=== PATIENT | female | born 1995 | race Caucasian/White ===

== ENCOUNTER → 2016-06-04 | Outpatient (CLI) | payer BC ==
--- NOTE | 2016-06-04 18:19 | XR ---
EXAMINATION TYPE: XR cervical spine limited DATE OF EXAM: 06/04/2016 5:45 PM COMPARISON: NONE HISTORY: Shoulder pain neck pain TECHNIQUE: 4 views FINDINGS: Cervical vertebra have normal spacing and alignment. Posterior elements are intact. [place] axial facet joint is normal. IMPRESSION: Normal cervical spine.
== END | disposition home or self-care (01) ==
LOC: RADXRMAIN 17:26
PROVIDERS: ATTEND Physician Assistant
DX: M43.6 Torticollis (principal)
CPT/HCPCS: 72040

== ENCOUNTER → 2017-09-07 | Outpatient (CLI) | payer BC ==
--- NOTE | 2017-09-07 12:51 | XR ---
EXAMINATION TYPE: XR sacrum coccyx DATE OF EXAM: 09/07/2017 CLINICAL HISTORY: pain TECHNIQUE: Three views of the sacrum and coccyx are submitted. COMPARISON: None Sacral alae appear symmetric. No evidence for fracture or bony lesion. Sacroiliac joints are within normal limits. Visualized coccygeal segments are free of fracture or lesion. IMPRESSION: Normal study
== END | disposition home or self-care (01) ==
LOC: RADXRMAIN 12:28
PROVIDERS: ATTEND Physician Assistant
DX: M54.5 Low back pain (principal)
CPT/HCPCS: 72220

== ENCOUNTER 2018-03-15 15:15 | Emergency (ER) | payer BC ==
[2018-03-15 16:47] LABS: Appearance,Urine Clear (Clear); Basophils % (A) 0 %; Bilirubin,Urine Negative (Negative); Blood,Urine Negative (Negative); Color,Urine Colorless; Eosinophils # (A) 0.2 k/uL (0-0.7); Eosinophils % (A) 3 %; Glucose,Urine (UA) Negative (Negative); HCT 43.2 % (34.0-46.0); HGB 14.8 gm/dL (11.4-16.0); Ketones,Urine Negative (Negative); Leukocyte Esterase,Urine Negative (Negative); Lymphocytes # (A) 1.6 k/uL (1.0-4.8); Lymphocytes % (A) 23 %; MCH 29.5 pg (25.0-35.0); MCHC 34.4 g/dL (31.0-37.0); MCV 85.9 fL (80.0-100.0); Mean Platelet Volume 7.2; Monocytes # (A) 0.4 k/uL (0-1.0); Monocytes % (A) 5 %; Neutrophils # (A) 4.7 k/uL (1.3-7.7); Neutrophils % (A) 66 %; Nitrite,Urine Negative (Negative); PH, Urine 5.5 (5.0-8.0); Platelet Count 259 k/uL (150-450); Protein,Urine Negative (Negative); RBC 5.03 m/uL (3.80-5.40); RDW 12.2 % (11.5-15.5); Specific Gravity,Urine 1.004 (1.001-1.035); Urobilinogen,Urine <2.0 mg/dL (<2.0); WBC 7.1 k/uL (3.8-10.6)
[2018-03-15 16:52] LABS: ALT 33 U/L (9-52); AST 34 U/L (14-36); Albumin 4.5 g/dL (3.5-5.0); Alkaline Phosphatase 65 U/L (38-126); Amylase 93 U/L (30-110); Anion Gap 11 mmol/L; Blood Urea Nitrogen 13 mg/dL (7-17); Calcium 10.2 mg/dL (8.4-10.2); Carbon Dioxide 24 mmol/L (22-30); Chloride 105 mmol/L (98-107); Glucose 95 mg/dL (74-99); Lipase 108 U/L (23-300); Potassium 4.8 mmol/L (3.5-5.1); Sodium 140 mmol/L (137-145); Total Bilirubin 0.4 mg/dL (0.2-1.3); Total Protein 7.7 g/dL (6.3-8.2)
--- NOTE | 2018-03-15 17:39 | ED ---
General Adult HPI - General Chief complaint: Abdominal Pain Stated complaint: abdominal pain Time Seen by Provider: 03/15/18 16:56 Source: patient, RN notes reviewed Mode of arrival: ambulatory Limitations: no limitations - History of Present Illness Initial comments: Patient 22-year-old female presenting to the emergency room today with a chief complaint of abdominal pain over the last 3 days. Patient does admit that she' s been experiencing some discomfort in right lower quadrant. Patient does admit that it was worse this morning. She didn't follow-up the family physician who advised to come here to the emergency room to rule out appendicitis. Patient states pain started around the umbilical area radiating over to the right lower quadrant. Patient does admit appetites been somewhat decreased. She denies any other complaints or symptoms. Patient denies any recent fever, chills, shortness of breath, chest pain, back pain, nausea or vomiting, numbness or tingling, dysuria or hematuria, constipation or diarrhea, headaches or visual changes, or any other complaints. - Related Data Home Medications Medication Instructions Recorded Confirmed Acetaminophen [Tylenol] 650 mg PO Q4H PRN 03/15/18 03/15/18 Levonest 28, 6-5-10 1 tab PO DAILY 03/15/18 03/15/18 Allergies Allergy/AdvReac Type Severity Reaction Status Date / Time nickel Allergy Rash/Hives Verified 03/15/18 17:26 mint Allergy Unknown Uncoded 03/15/18 15:58 Review of Systems ROS Statement: Those systems with pertinent positive or pertinent negative responses have been documented in the HPI. ROS Other: All systems not noted in ROS Statement are negative. Past Medical History Additional Past Medical History / Comment(s): Hx Ovarian Cyst History of Any Multi-Drug Resistant Organisms: None Reported Past Surgical History: No Surgical Hx Reported Past Psychological History: No Psychological Hx Reported Smoking Status: Never smoker Past Alcohol Use History: Occasional Past Drug Use History: None Reported General Exam - General Exam Comments Initial Comments: General: The patient is awake and alert, in no distress, and does not appear acutely ill. Eye: Extra-ocular movements are intact. No nystagmus. There is normal conjunctiva bilaterally. No signs of icterus. Ears, nose, mouth and throat: There are moist mucous membranes and no oral lesions. Neck: The neck is supple, there is no tenderness or JVD. Cardiovascular: There is a regular rate and rhythm. No murmur, rub or gallop is appreciated. Respiratory: Lungs are clear to auscultation, respirations are non-labored, breath sounds are equal. No wheezes, stridor, rales, or rhonchi. Gastrointestinal: Soft on palpation. Patient tender to palpation right lower quadrant. No rebound, guarding or CVA tenderness. Musculoskeletal: Normal ROM, no tenderness. Sensation intact. Strength 5/5. Pulses equal bilaterally 2+. Neurological: A&O x 3. CN II-XII intact, There are no obvious motor or sensory deficits. Coordination appears grossly intact. Speech is normal. Skin: Skin is warm and dry and no rashes or lesions are noted. Psychiatric: Cooperative, appropriate mood & affect, normal judgment. Limitations: no limitations Course Vital Signs 03/15/18 15:56 Temperature 98.3 F Pulse Rate 82 Respiratory 20 Rate Blood Pressure 134/92 O2 Sat by Pulse 99 Oximetry Medical Decision Making - Medical Decision Making Patient's CT shows 5.5 cm right adnexal cystic mass, presumably are present and functional ovarian cyst. Suggest following up. The patient's labs been reviewed unremarkable. Patient's currently up moving around the room. Patient' s vital stable. Patient will be discharged to follow-up with her CHIEF SCIENTIFIC OFFICER. She states she's seeing Dr. Singleton in the past. - Lab Data Result diagrams: 03/15/18 16:20 03/15/18 16:20 Lab Results 03/15/18 03/15/18 03/15/18 Range/Units 16:20 16:20 16:20 WBC 7.1 (3.8-10.6) k/uL RBC 5.03 (3.80-5.40) m/uL Hgb 14.8 (11.4-16.0) gm/dL Hct 43.2 (34.0-46.0) % MCV 85.9 (80.0-100.0) fL MCH 29.5 (25.0-35.0) pg MCHC 34.4 (31.0-37.0) g/dL RDW 12.2 (11.5-15.5) % Plt Count 259 (150-450) k/uL Neutrophils % 66 % Lymphocytes % 23 % Monocytes % 5 % Eosinophils % 3 % Basophils % 0 % Neutrophils # 4.7 (1.3-7.7) k/uL Lymphocytes # 1.6 (1.0-4.8) k/uL Monocytes # 0.4 (0-1.0) k/uL Eosinophils # 0.2 (0-0.7) k/uL Basophils # 0.0 (0-0.2) k/uL Sodium 140 (137-145) mmol/L Potassium 4.8 (3.5-5.1) mmol/L Chloride 105 (98-107) mmol/L Carbon Dioxide 24 (22-30) mmol/L Anion Gap 11 mmol/L BUN 13 (7-17) mg/dL Creatinine 0.67 (0.52-1.04) mg/dL Est GFR (CKD-EPI)AfAm >90 (>60 ml/min/1.73 sqM) Est GFR (CKD-EPI)NonAf >90 (>60 ml/min/1.73 sqM) Glucose 95 (74-99) mg/dL Calcium 10.2 (8.4-10.2) mg/dL Total Bilirubin 0.4 (0.2-1.3) mg/dL AST 34 (14-36) U/L ALT 33 (9-52) U/L Alkaline Phosphatase 65 (38-126) U/L Total Protein 7.7 (6.3-8.2) g/dL Albumin 4.5 (3.5-5.0) g/dL Amylase 93 (30-110) U/L Lipase 108 (23-300) U/L Urine Color Colorless Urine Appearance Clear (Clear) Urine pH 5.5 (5.0-8.0) Ur Specific [place] 1.004 (1.001-1.035) Urine Protein Negative (Negative) Urine Glucose (UA) Negative (Negative) Urine Ketones Negative (Negative) Urine Blood Negative (Negative) Urine Nitrite Negative (Negative) Urine Bilirubin Negative (Negative) Urine Urobilinogen <2.0 (<2.0) mg/dL Ur Leukocyte Esterase Negative (Negative) Disposition Clinical Impression: Ovarian cyst Disposition: HOME SELF-CARE Condition: Good Instructions: Ovarian Cyst (ED) Additional Instructions: Please use Tylenol/ibuprofen. Please follow-up with CHIEF SCIENTIFIC OFFICER/family doctor in the next 2 days of symptoms have not improved. Please return to emergency room if the symptoms increase or worsen or for any other concerns. Is patient prescribed a controlled substance at d/c from ED?: No Referrals: Nahun Mota MD [Primary Care Provider] - 1-2 days Emelina Singleton MD [STAFF PHYSICIAN] - 1-2 days Time of Disposition: 19:25
--- NOTE | 2018-03-15 18:16 | CT ---
EXAMINATION TYPE: CT abdomen pelvis w con DATE OF EXAM: 03/15/2018 COMPARISON: None. HISTORY: RLQ pain for [address] DLP: 1194.4 mGycm Automated exposure control for dose reduction was used. TECHNIQUE: Helical acquisition of images was performed from the lung bases through the pelvis. CONTRAST: Performed without Oral Contrast and with IV Contrast, patient injected with 100 mL of Isovu e 300. FINDINGS: LUNG BASES: No significant abnormality is appreciated. LIVER/GB: No significant abnormality is appreciated. PANCREAS: No significant abnormality is seen. SPLEEN: No significant abnormality is seen. ADRENALS: No significant abnormality is seen. KIDNEYS: No significant abnormality is seen. FREE AIR: No free air is visualized. ADENOPATHY: No marsha adenopathy. However, there are a few scattered mesenteric subcentimeter lymph nodes appreciated, including the right lower quadrant. These can correlate with a clinical diagnosis of gastroenteritis. REPRODUCTIVE ORGANS: There is a 5.5 cm rounded cystic mass in the right adnexa and a similar appearin g focus in the left adnexa measuring 2 cm. There is minimal right-sided peritoneal fluid identified. URINARY BLADDER: No significant abnormality is seen. PELVIC ADENOPATHY: None visualized. OSSEOUS STRUCTURES: No significant abnormality is seen. BOWEL: No significant abnormality is seen. The cecum is high riding to a mild degree with the append ix extending caudally in the right lower quadrant. Negative for CT evidence of appendicitis. OTHER: The vasculature is unremarkable. IMPRESSION: 5.5 CM RIGHT ADNEXAL CYSTIC MASS, PRESUMABLY REPRESENTING FUNCTIONAL OVARIAN CYST. WOULD SUGGEST 2 OR 6 WEEK FOLLOW-UP ULTRASOUND CHARACTERIZATION.
[2018-03-15 19:56] VITALS: BP 137/80; PULSE 84; RESP 16; TEMP 98.2
== END 2018-03-15 19:55 | disposition home or self-care (01) ==
LOC: EC 15:15
DX: N83.201 Unspecified ovarian cyst, right side (principal); Z79.3 Long term (current) use of hormonal contraceptives; Z91.018 Allergy to other foods; Z88.8 Allergy status to other drugs, medicaments and biological substances
CPT/HCPCS: 36415; 80053; 82150; 83690; 85025; 81003; 74177; 99284; Q9967

== ENCOUNTER → 2018-11-11 | Outpatient (CLI) | payer BC ==
--- NOTE | 2018-11-11 16:29 | MR ---
EXAMINATION TYPE: MR brain/orbits wo/w con DATE OF EXAM: 11/11/2018 COMPARISON: MRI of the brain dated 07/16/2012, normal at that time. HISTORY: Chronic tension-type headache TECHNIQUE: Multiplanar, multisequence images of the orbits, brain and brainstem is performed without and with IV contrast, utilizing 10 mL intravenous Gadavist . FINDINGS: Diffusion weighted images demonstrate no evidence of a recent infarct or other diffusion ab normality. There is no extra-axial fluid collection or significant white matter signal abnormality. The ventricular system and cisternal spaces are normal in size and appearance. The brain volume is age appropriate. Cerebellar tonsils are slightly low-lying without herniation. The remaining midline structures demons trate normal morphology. The craniocervical junction appears within normal limits. Post contrast irish ges demonstrate no abnormal enhancement. The dural venous sinuses appear patent. The visualized sinus es demonstrate a scant degree of mucosal thickening of the anterior right maxillary sinus and within the ethmoid sinuses. Remaining paranasal sinuses and mastoid air cells are well aerated. Globes are i ntact however there is slightly prominent degree of subarachnoid fluid surrounding the optic nerves w ith very mild undulation. No evidence of a partially into sella turcica. Bone marrow signal is lower limits of normal. Correlate with CBC to exclude anemia. Probable hemangioma that is T1 hyperintense i s seen of C3. Extraocular muscles are symmetric. No abnormal enhancement is seen of the optic nerves. Globes are sy mmetric. As described above there is a slightly prominent amount of perineural fluid bilaterally on T 2-weighted imaging. Globes maintain a normal rounded contour and lenses are symmetric and unremarkabl e. No intraconal or extraconal mass is seen. Lacrimal glands are also symmetric and unremarkable. IMPRESSION: 1. Very mild increased subarachnoid fluid and undulation surrounding the optic nerves. This finding i s nonspecific and can be a normal variant or seen in increased intracranial pressure. Correlate with ophthalmologic exam to exclude papilledema. This finding could also be seen in pseudotumor cerebri. C orrelate with clinical findings. 2. Very mild mucosal thickening of the ethmoid and right maxillary sinus. 3. No abnormal intracranial enhancement
== END | disposition home or self-care (01) ==
LOC: RADMRIMAIN 15:09
PROVIDERS: ATTEND Ophthalmology
DX: J34.89 Other specified disorders of nose and nasal sinuses (principal); H46.01 Optic papillitis, right eye
CPT/HCPCS: 70543; 70553; A9585

== ENCOUNTER 2018-11-24 09:44 | Day surgery (SDC) | payer BC ==
[2018-11-19 11:43] VITALS: BMI 33.0
[~2018-11-24 09:44] MED LIST: LACTATED RINGERS 1,000 ML IV SCH
[2018-11-24 10:06] VITALS: RESP 16; TEMP 97.4
[2018-11-24] MEDS ORDERED: LIDOCAINE 1% 20 ML VIAL (10MG/ML) FOR IV START INTRADERMA ONE (10:10)
[2018-11-24] MEDS ORDERED: IV FLUID CONTINUATION 1,000 ML IV ONE (11:22)
--- NOTE | 2018-11-24 12:00 | P.OP ---
Date of Procedure: 11/24/18 Surgeon: Luis Alfredo Garvey Description of Procedure: Procedure=lumbar puncture . Preoperative diagnoses= visual changes Postoperative diagnosis= same Anesthesia= local lidocaine infiltration 1% 2 mL for skin and subcutaneous infiltration. 4 mg of Versed and 100 g of fentanyl Condition= stable. Complications=none. Indication for the procedure= this is a lumbar puncture which was ordered by the patient's physician in order to assess for her opening pressure into send fluid off her labs. Procedure: Lumbar puncture Description of the procedure= patient in the procedure room sitting position and monitors applied, the back prepped with chlorhexidine, sterile technique, local infiltration of the skin and subcutaneous tissue with lidocaine 1% 5 mL, then 22-gauge quickie Needle advanced slowly at the L4 5 interlaminar space, the opening pressure was found to be 23 cm of water , the cerebrospinal fluid was clear, and no heme no paresthesia, a total of 12 mL of clear cerebrospinal fluid collected in 4 different tubes, the needle removed, Band-Aid applied , patient tolerated the procedure well without any complications, and further management as per the patient's neurologist
[2018-11-24 12:04] VITALS: BP 118/74; PULSE 67
== END 2018-11-24 12:26 | disposition home or self-care (01) ==
LOC: ORPAIN 09:44
PROVIDERS: ATTEND Pain Medicine Pain Medicine
DX: H53.9 Unspecified visual disturbance (principal); Z79.1 Long term (current) use of non-steroidal anti-inflammatories (NSAID); Z79.899 Other long term (current) drug therapy; Z91.09 Other allergy status, other than to drugs and biological substances; Z80.9 Family history of malignant neoplasm, unspecified
CPT/HCPCS: 62270; 81025; 88108; J2250; J3010; 99152; 99153

== ENCOUNTER → 2018-12-03 | Outpatient (CLI) | payer BC ==
--- NOTE | 2018-12-03 19:41 | XR ---
EXAM TYPE: LUMBAR SPINE X RAY SERIES COMPARISON: NONE HISTORY: Pain TECHNIQUE: 4 views are submitted. FINDINGS: Alignment is anatomic. The pedicles are intact. The transverse processes are intact. There is no s pondylolysis or spondylolisthesis. IMPRESSION: 1. No acute process. If symptoms persist recommend MRI.
== END ==
LOC: RADXRMAIN 17:09
PROVIDERS: ATTEND Physician Assistant
DX: G62.9 Polyneuropathy, unspecified (principal)
CPT/HCPCS: 72100

== ENCOUNTER → 2018-12-13 | Outpatient (CLI) | payer BC ==
--- NOTE | 2018-12-14 07:12 | MR ---
EXAMINATION TYPE: MR lumbar spine wo con DATE OF EXAM: 12/13/2018 COMPARISON: Lumbar spine x-ray 10 days ago. HISTORY: BILAT PAIN IN THE BACK OF KNEES DOWN TO FEET X3 WEEKS, HX OF LUMBAR PUNCTURE 3 WEEKS AGO, luis alberto mbar radiculopathy per order TECHNIQUE: Multiplanar, multisequence imaging of the lumbar spine is performed without IV contrast. FINDINGS: Sagittal images of the lumbar spine show vertebral body heights and alignment to appear sat isfactory. The intervertebral discs demonstrate normal heights and hydration. No large posterior disc herniations on sagittal images The conus medullaris is normal in position and signal. Small hemangio ma is seen at S3 vertebral level sagittal image 9. Axial images show no focal disc disease, or facet degenerative change at any lumbar level. There is no spinal canal stenosis, neural foraminal narrowing, or evidence of nerve root compromise. No suspic ious incidental retroperitoneal findings. IMPRESSION: Fairly unremarkable study.
== END | disposition home or self-care (01) ==
LOC: RADMRIMAIN 18:42
PROVIDERS: ATTEND Physician Assistant
DX: M54.16 Radiculopathy, lumbar region (principal)
CPT/HCPCS: 72148

== ENCOUNTER 2019-03-04 10:22 | Emergency (ER) | payer BC ==
[2019-03-04 10:37] VITALS: TEMP 98.3
[2019-03-04] MEDS ORDERED: ONDANSETRON 4 MG/2 ML VIAL IVP STA (10:52)
[2019-03-04] MEDS ORDERED: SODIUM CHLORIDE 0.9% 1,000 ML IV STA (10:52)
[2019-03-04] MEDS ORDERED: KETOROLAC 30 MG/ML 1 ML VIAL IVP STA (10:52)
--- NOTE | 2019-03-04 11:14 | ED ---
Abdominal Pain HPI - General Chief Complaint: Abdominal Pain Stated Complaint: abd pain Time Seen by Provider: 03/04/19 10:38 Source: patient, family Mode of arrival: ambulatory Limitations: no limitations - History of Present Illness Initial Comments: Patient is a 23-year-old female presenting to the emergency Department with complaints of right-sided abdominal pain 3 days. Patient states her pain started around her umbilical area approximately 3 days ago and then has moved to her right side of her abdomen. Patient reports associated nausea, decreased appetite and not being will sleep secondary to the pain. Patient states the pain feels better when she is flat and increases when she is seated in the car. Patient has a history of ovarian cyst on the right side. Patient denies fever, chills, vomiting, diarrhea. Patient's last bowel movement was yesterday and was normal. Patient denies any abdominal surgeries. No other pertinent past medical history. Patient takes no medications. Upon arrival to ER, vital signs are stable. - Related Data Home Medications Medication Instructions Recorded Confirmed Acetaminophen [Tylenol] 650 mg PO Q4H PRN 03/15/18 11/24/18 Inulin/Chromium Picolinate [Fiber 1 each PO DAILY 11/19/18 11/24/18 Gummies Chew] Multivitamins, Thera [Multivitamin 1 tab PO DAILY 11/19/18 11/24/18 (formulary)] Previous Rx's Medication Instructions Recorded Amoxicillin/Potassium Clav 1 tab PO BID 7 Days #14 tab 03/04/19 [Augmentin 875-125 Tablet] Ondansetron Odt [Zofran Odt] 4 mg PO Q8HR PRN #10 tab 03/04/19 Allergies Allergy/AdvReac Type Severity Reaction Status Date / Time nickel Allergy Rash/Hives Verified 03/04/19 10:35 mint Allergy Unknown Uncoded 03/04/19 10:35 Review of Systems ROS Statement: Those systems with pertinent positive or pertinent negative responses have been documented in the HPI. ROS Other: All systems not noted in ROS Statement are negative. Past Medical History Additional Past Medical History / Comment(s): Hx Ovarian Cyst, "excess fluid brain, eyes going blurry" History of Any Multi-Drug Resistant Organisms: None Reported Past Surgical History: No Surgical Hx Reported Past Anesthesia/Blood Transfusion Reactions: No Reported Reaction Additional Past Anesthesia/Blood Transfusion Reaction / Comment(s): has never had anesthesia Past Psychological History: No Psychological Hx Reported Smoking Status: Never smoker Past Alcohol Use History: None Reported Past Drug Use History: None Reported - Past Family History Mother Family Medical History: No Reported History General Exam - General Exam Comments Initial Comments: GENERAL: Well-appearing, well-nourished and in no acute distress. HEAD: Atraumatic, normocephalic. EYES: Pupils equal round and reactive to light, extraocular movements intact, sclera anicteric, conjunctiva are normal. ENT: TMs normal, nares patent, oropharynx clear without exudates. Moist mucous membranes. NECK: Normal range of motion, supple without lymphadenopathy or JVD. LUNGS: Breath sounds clear to auscultation bilaterally and equal. No wheezes rales or rhonchi. HEART: Regular rate and rhythm without murmurs, rubs or gallops. ABDOMEN: Generalized abdominal tenderness, increased on the right upper and lower quadrants. Soft, normoactive bowel sounds. No guarding, no rebound. No masses appreciated. : Deferred, declined. EXTREMITIES: Normal range of motion, no pitting or edema. No clubbing or cyanosis. NEUROLOGICAL: Cranial nerves II through XII grossly intact. Normal speech, normal gait. PSYCH: Normal mood, normal affect. SKIN: Warm, Dry, normal turgor, no rashes or lesions noted. Limitations: no limitations Course Vital Signs 03/04/19 03/04/19 10:35 13:37 Temperature 98.3 F Pulse Rate 92 81 Respiratory 16 18 Rate Blood Pressure 129/87 122/71 O2 Sat by Pulse 98 98 Oximetry Medical Decision Making - Medical Decision Making Patient is a 23-year-old female presenting with right-sided abdominal pain x 2 days. Patient's vital signs are normal upon arrival. On exam patient has tenderness of the right upper and lower quadrants. Rest of exam is normal. CBC, CMP are within normal limits. UA reveals occasional urine bacteria. Urine hCG is not detected. CT the abdomen was obtained with concern for appendicitis. Findings suggest ascending colitis with reactive right lower quadrant adenopathy. Inflammatory bowel disease could be considered. No evidence of acute appendicitis. There are cystic changes bilateral ovaries. Patient also declined vaginal exam. These findings were discussed with the patient is recommended for patient to have a vaginal ultrasound to rule out ovarian torsion. Patient declined this exam. The risks of not doing the ultrasound was discussed in depth with the patient and the patient's mother and again patient declined US at this time. Patient is feeling more comfortable to follow-up with her CASH MANAGEMENT ASSOCIATE. Patient will be started on Augmentin for the colitis as well as Zofran as needed for nausea. Case was discussed with Dr. Elise. Patient is stable for discharge at this time. Return parameters were discussed with the patient she verbalized understanding. - Lab Data Result diagrams: 03/04/19 11:10 03/04/19 11:10 Lab Results 03/04/19 03/04/19 03/04/19 Range/Units 11:00 11:00 11:10 WBC (3.8-10.6) k/uL RBC (3.80-5.40) m/uL Hgb (11.4-16.0) gm/dL Hct (34.0-46.0) % MCV (80.0-100.0) fL MCH (25.0-35.0) pg MCHC (31.0-37.0) g/dL RDW (11.5-15.5) % Plt Count (150-450) k/uL Neutrophils % % Lymphocytes % % Monocytes % % Eosinophils % % Basophils % % Neutrophils # (1.3-7.7) k/uL Lymphocytes # (1.0-4.8) k/uL Monocytes # (0-1.0) k/uL Eosinophils # (0-0.7) k/uL Basophils # (0-0.2) k/uL Sodium 140 (137-145) mmol/L Potassium 3.7 (3.5-5.1) mmol/L Chloride 104 (98-107) mmol/L Carbon Dioxide 26 (22-30) mmol/L Anion Gap 10 mmol/L BUN 9 (7-17) mg/dL Creatinine 0.78 (0.52-1.04) mg/dL Est GFR (CKD-EPI)AfAm >90 (>60 ml/min/1.73 sqM) Est GFR (CKD-EPI)NonAf >90 (>60 ml/min/1.73 sqM) Glucose 110 H (74-99) mg/dL Calcium 9.5 (8.4-10.2) mg/dL Total Bilirubin 1.1 (0.2-1.3) mg/dL AST 27 (14-36) U/L ALT 23 (9-52) U/L Alkaline Phosphatase 61 (38-126) U/L Total Protein 7.6 (6.3-8.2) g/dL Albumin 4.6 (3.5-5.0) g/dL Amylase 58 (30-110) U/L Lipase 75 (23-300) U/L Urine Color Yellow Urine Appearance Cloudy H (Clear) Urine pH 5.5 (5.0-8.0) Ur Specific [place] 1.030 (1.001-1.035) Urine Protein Trace H (Negative) Urine Glucose (UA) Negative (Negative) Urine Ketones Negative (Negative) Urine Blood Negative (Negative) Urine Nitrite Negative (Negative) Urine Bilirubin Negative (Negative) Urine Urobilinogen 2.0 (<2.0) mg/dL Ur Leukocyte Esterase Trace H (Negative) Urine RBC 2 (0-5) /hpf Urine WBC 5 (0-5) /hpf Ur Squamous Epith Cells 2 (0-4) /hpf Calcium Oxalate Crystal Moderate H (None) /hpf Urine Bacteria Occasional H (None) /hpf Urine Mucus Many H (None) /hpf Urine HCG, Qual Not Detected (Not Detectd) 03/04/19 Range/Units 11:10 WBC 6.8 (3.8-10.6) k/uL RBC 4.73 (3.80-5.40) m/uL Hgb 14.5 (11.4-16.0) gm/dL Hct 41.6 (34.0-46.0) % MCV 88.0 (80.0-100.0) fL MCH 30.6 (25.0-35.0) pg MCHC 34.7 (31.0-37.0) g/dL RDW 11.8 (11.5-15.5) % Plt Count 271 (150-450) k/uL Neutrophils % 72 % Lymphocytes % 19 % Monocytes % 5 % Eosinophils % 2 % Basophils % 0 % Neutrophils # 4.9 (1.3-7.7) k/uL Lymphocytes # 1.3 (1.0-4.8) k/uL Monocytes # 0.4 (0-1.0) k/uL Eosinophils # 0.2 (0-0.7) k/uL Basophils # 0.0 (0-0.2) k/uL Sodium (137-145) mmol/L Potassium (3.5-5.1) mmol/L Chloride (98-107) mmol/L Carbon Dioxide (22-30) mmol/L Anion Gap mmol/L BUN (7-17) mg/dL Creatinine (0.52-1.04) mg/dL Est GFR (CKD-EPI)AfAm (>60 ml/min/1.73 sqM) Est GFR (CKD-EPI)NonAf (>60 ml/min/1.73 sqM) Glucose (74-99) mg/dL Calcium (8.4-10.2) mg/dL Total Bilirubin (0.2-1.3) mg/dL AST (14-36) U/L ALT (9-52) U/L Alkaline Phosphatase (38-126) U/L Total Protein (6.3-8.2) g/dL Albumin (3.5-5.0) g/dL Amylase (30-110) U/L Lipase (23-300) U/L Urine Color Urine Appearance (Clear) Urine pH (5.0-8.0) Ur Specific [place] (1.001-1.035) Urine Protein (Negative) Urine Glucose (UA) (Negative) Urine Ketones (Negative) Urine Blood (Negative) Urine Nitrite (Negative) Urine Bilirubin (Negative) Urine Urobilinogen (<2.0) mg/dL Ur Leukocyte Esterase (Negative) Urine RBC (0-5) /hpf Urine WBC (0-5) /hpf Ur Squamous Epith Cells (0-4) /hpf Calcium Oxalate Crystal (None) /hpf Urine Bacteria (None) /hpf Urine Mucus (None) /hpf Urine HCG, Qual (Not Detectd) Disposition Clinical Impression: Abdominal pain, Colitis Disposition: HOME SELF-CARE Condition: Stable Instructions (If sedation given, give patient instructions): Colitis (ED) Additional Instructions: Please return to the Emergency Department if symptoms worsen or any other concerns. Follow-up with CASH MANAGEMENT ASSOCIATE as discussed. Take medication as prescribed. Prescriptions: Amoxicillin/Potassium Clav [Augmentin 875-125 Tablet] 1 tab PO BID 7 Days #14 tab Ondansetron Odt [Zofran Odt] 4 mg PO Q8HR PRN #10 tab PRN Reason: Nausea Is patient prescribed a controlled substance at d/c from ED?: No Referrals: Nahun Mota MD [Primary Care Provider] - 1-2 days
[2019-03-04 11:26] LABS: Basophils % (A) 0 %; Eosinophils # (A) 0.2 k/uL (0-0.7); Eosinophils % (A) 2 %; HCT 41.6 % (34.0-46.0); HGB 14.5 gm/dL (11.4-16.0); Lymphocytes # (A) 1.3 k/uL (1.0-4.8); Lymphocytes % (A) 19 %; MCH 30.6 pg (25.0-35.0); MCHC 34.7 g/dL (31.0-37.0); Mean Platelet Volume 6.4; Monocytes # (A) 0.4 k/uL (0-1.0); Monocytes % (A) 5 %; Neutrophils # (A) 4.9 k/uL (1.3-7.7); Neutrophils % (A) 72 %; Platelet Count 271 k/uL (150-450); RBC 4.73 m/uL (3.80-5.40); RDW 11.8 % (11.5-15.5); WBC 6.8 k/uL (3.8-10.6)
[2019-03-04 11:29] LABS: Appearance,Urine Cloudy (Clear); Bacteria,Urine Occasional /hpf; Bilirubin,Urine Negative (Negative); Blood,Urine Negative (Negative); Calcium Oxalate Crystals,Urine Moderate /hpf; Color,Urine Yellow; Glucose,Urine (UA) Negative (Negative); Ketones,Urine Negative (Negative); Leukocyte Esterase,Urine Trace (Negative); Mucus,Urine Many /hpf; Nitrite,Urine Negative (Negative); PH, Urine 5.5 (5.0-8.0); Protein,Urine Trace (Negative); RBC,Urine 2 /hpf (0-5); Squamous Epithelial Cell,Urine 2 /hpf (0-4)
[2019-03-04 11:32] LABS: ALT 23 U/L (9-52); AST 27 U/L (14-36); African American GFR (CKD) >90 (>60 ml/min/1.73 sqM); Albumin 4.6 g/dL (3.5-5.0); Alkaline Phosphatase 61 U/L (38-126); Amylase 58 U/L (30-110); Anion Gap 10 mmol/L; Blood Urea Nitrogen 9 mg/dL (7-17); Calcium 9.5 mg/dL (8.4-10.2); Carbon Dioxide 26 mmol/L (22-30); Chloride 104 mmol/L (98-107); Glucose 110 mg/dL (74-99); Potassium 3.7 mmol/L (3.5-5.1); Sodium 140 mmol/L (137-145); Total Bilirubin 1.1 mg/dL (0.2-1.3); Total Protein 7.6 g/dL (6.3-8.2)
--- NOTE | 2019-03-04 12:30 | CT ---
EXAMINATION TYPE: CT abdomen pelvis w con DATE OF EXAM: 03/04/2019 HISTORY: Right sided Abdominal pain CT DLP: 1520.5mGycm Automated Exposure Control for Dose Reduction was Utilized. CONTRAST: CT scan of the abdomen and pelvis is performed with IV Contrast, patient injected with 100 mL of Isov ue 300. COMPARISON: 03/15/2018. FINDINGS: LUNG BASES: No significant abnormality is appreciated. LIVER/GB: The liver is diffusely hypoattenuated in comparison to that of the spleen, approaching crit eria for mild degree hepatic steatosis. This finding limits evaluation for hepatic masses however no focal mass is seen on today's exam. No radiopaque calculi in the gallbladder. PANCREAS: No significant abnormality is seen. SPLEEN: No significant abnormality is seen. ADRENALS: No significant abnormality is seen. KIDNEYS: Kidneys enhance and excrete symmetrically. No hydronephrosis. BOWEL: Subtle fat stranding is seen around the ascending colon and cecum. The appendix is identified low within the right lower quadrant and appears within normal limits of size and partially air-filled . No focal periappendiceal fat stranding is seen. There are prominent lymph nodes seen in the right l ower quadrant measuring up to 7 mm in short axis. The terminal ileum is incompletely distended but ap pears to demonstrate some very mild bowel wall thickening. Appendix measures 5 mm in size on coronal image 29. UTERUS/ADNEXA: There are follicular and/or cystic changes of the bilateral ovaries. LYMPH NODES: No greater than 1cm abdominal or pelvic lymph nodes are appreciated. OSSEOUS STRUCTURES: No significant abnormality is seen. Osseous structures appear intact. IMPRESSION: 1. Findings suggest ascending colitis with mild involvement of the cecum and terminal ileum and promi nent likely reactive right lower quadrant adenopathy. Inflammatory bowel disease could be considered. The appendix is visualized, air-filled, 5 mm of size, and without periappendiceal fat stranding. No current evidence of acute appendicitis. 2. Follicular and/or cystic changes of the bilateral ovaries are seen. If there is further concern pe lvic ultrasound could be performed.
[2019-03-04 14:06] VITALS: BP 122/71; PULSE 81; RESP 18
== END 2019-03-04 14:06 | disposition home or self-care (01) ==
LOC: EC 10:22
DX: K52.9 Noninfective gastroenteritis and colitis, unspecified (principal); R82.71 Bacteriuria; N83.201 Unspecified ovarian cyst, right side; N83.202 Unspecified ovarian cyst, left side; Z53.20 Procedure and treatment not carried out because of patient's decision for unspecified reasons; Z91.048 Other nonmedicinal substance allergy status
CPT/HCPCS: 36415; 80053; 82150; 83690; 85025; 81001; 81025; 74177; 99284; 96374; 96375; 96361; J2405; J1885; Q9967

== ENCOUNTER → 2019-12-07 | Outpatient (CLI) | payer BC | END | disposition home or self-care (01) | LOC: LABWHC1 10:00 | PROVIDERS: ATTEND Family Medicine | DX: R68.89 Other general symptoms and signs (principal) | CPT/HCPCS: U0003; C9803 ==

== ENCOUNTER 2020-01-31 09:28 | Emergency (ER) | payer BC ==
--- NOTE | 2020-01-31 09:55 | ED ---
General Adult HPI - General Chief complaint: Head Injury Stated complaint: head injury Time Seen by Provider: 01/31/20 09:30 Source: patient, RN notes reviewed, old records reviewed Mode of arrival: ambulatory Limitations: no limitations - History of Present Illness Initial comments: This is a 24-year-old female who presents emergency department stating that a running board of her truck fell over and hit her in the head she did not lose consciousness at the time. Patient states this occurred yesterday. Patient states she woke up this morning had a headache and just wasn't feeling right so she came to the emergency department. Patient denies any neck pain. Patient denies any other injury at this time. Patient denies nausea or vomiting. Roxane ent denies any numbness or weakness. - Related Data Home Medications Medication Instructions Recorded Confirmed Acetaminophen [Tylenol] 650 mg PO Q4H PRN 03/15/18 11/24/18 Inulin/Chromium Picolinate [Fiber 1 each PO DAILY 11/19/18 11/24/18 Gummies Chew] Multivitamins, Thera [Multivitamin 1 tab PO DAILY 11/19/18 11/24/18 (formulary)] Previous Rx's Medication Instructions Recorded Amoxicillin/Potassium Clav 1 tab PO BID 7 Days #14 tab 03/04/19 [Augmentin 875-125 Tablet] Ondansetron Odt [Zofran Odt] 4 mg PO Q8HR PRN #10 tab 03/04/19 Allergies Allergy/AdvReac Type Severity Reaction Status Date / Time nickel Allergy Rash/Hives Verified 03/04/19 10:35 mint Allergy Unknown Uncoded 03/04/19 10:35 Review of Systems ROS Statement: Those systems with pertinent positive or pertinent negative responses have been documented in the HPI. ROS Other: All systems not noted in ROS Statement are negative. Past Medical History Additional Past Medical History / Comment(s): Hx Ovarian Cyst, "excess fluid brain, eyes going blurry" History of Any Multi-Drug Resistant Organisms: None Reported Past Surgical History: No Surgical Hx Reported Past Anesthesia/Blood Transfusion Reactions: No Reported Reaction Additional Past Anesthesia/Blood Transfusion Reaction / Comment(s): has never had anesthesia Past Psychological History: No Psychological Hx Reported Smoking Status: Former smoker Past Alcohol Use History: Occasional Past Drug Use History: None Reported - Past Family History Mother Family Medical History: No Reported History General Exam - General Exam Comments Initial Comments: GENERAL: Patient is well-developed and well-nourished. Patient is nontoxic and well- hydrated and is in mild distress. ENT: Neck is soft and supple. No significant lymphadenopathy is noted. Oropharynx is clear. Moist mucous membranes. Neck has full range of motion without eliciting any pain. EYES: The sclera were anicteric and conjunctiva were pink and moist. Extraocular movements were intact and pupils were equal round and reactive to light. Eyeli ds were unremarkable. PULMONARY: Unlabored respirations. Good breath sounds bilaterally. No audible rales rhonchi or wheezing was noted. CARDIOVASCULAR: There is a regular rate and rhythm without any murmurs gallops or rubs. ABDOMEN: Soft and nontender with normal bowel sounds. SKIN: Skin is clear with no lesions or rashes and otherwise unremarkable. NEUROLOGIC: Patient is alert and oriented x3. Cranial nerves II through XII are grossly intact. Motor and sensory are also intact. Normal speech, volume and content. Symmetrical smile. MUSCULOSKELETAL: Normal extremities with adequate strength and full range of motion. No lower extremity swelling or edema. No calf tenderness. LYMPHATICS: No significant lymphadenopathy is noted PSYCHIATRIC: Normal psychiatric evaluation. Limitations: no limitations Course Vital Signs 01/31/20 09:29 Temperature 98.4 F Pulse Rate 79 Respiratory 16 Rate Blood Pressure 130/90 O2 Sat by Pulse 98 Oximetry Medical Decision Making - Medical Decision Making CT of the brain and C-spine are negative for acute abnormality. Disposition Clinical Impression: Head injury Disposition: HOME SELF-CARE Condition: Good Instructions (If sedation given, give patient instructions): Head Injury (ED) Is patient prescribed a controlled substance at d/c from ED?: No Referrals: Nahun Mota MD [Primary Care Provider] - 1-2 days Time of Disposition: 10:52
--- NOTE | 2020-01-31 10:49 | CT ---
EXAMINATION TYPE: CT brain cspine wo con DATE OF EXAM: 01/31/2020 COMPARISON: MRI 11/11/2018 HISTORY: 24-year-old female trauma, Head injury yesterday, increasing pain CT DLP: 1452.4 mGycm Automated exposure control for dose reduction was used. Technique: Examination of the head was done in axial plane without intravenous contrast. Coronal and sagittal reconstructions performed. CT of the cervical spine was obtained in axial plane without intravenous injection of contrast mater ial. Coronal and sagittal reformatted images were obtained from the axial views for evaluation of f ractures, spinal alignment and canal. FINDINGS: Head: There is no evidence of acute intracranial hemorrhage, acute ischemic changes, mass, mass-effect, or extra-axial fluid collection. There is no effacement of cerebral sulci or basal subarachnoid cister ns. There is no hydrocephalus. There is no midline shift. Forde-white matter distinction is preserv ed. 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 Partially empty sella. Mild mucosal thickening right maxillary sinus. Otherwise, paranasal sinuses and mastoid air cells wel l pneumatized. Visualized orbits and globes are intact. Cervical spine: No craniocervical junction anomaly, predental space widening, or prevertebral soft tissue swelling. Preserved alignment of the cervical spine with reversal of the normal cervical lordosis. Artifact from the patient's shoulders limits assessment of the spinal canal from C5-C6 and below. The right lobe of the thyroid gland is either hypoplastic or surgically absent. Underlying nodularity suggested in the left lobe. Sagittal and coronal reformatted images confirm above findings. COMBINED IMPRESSION: 1. No acute intracranial abnormality seen. 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 2. No acute fracture or malalignment of the cervical spine. Reversal of the normal cervical lordosis could be positional or due to muscle spasm. 3. The right lobe of the thyroid gland is either surgically absent or hypoplastic. Underlying nodular ity suggested in the left lobe. Follow-up thyroid ultrasound evaluation recommended. 4. Mild chronic right maxillary sinus disease.
[2020-01-31 11:07] VITALS: BP 127/80; PULSE 69; RESP 18; TEMP 97.7
== END 2020-01-31 11:07 | disposition home or self-care (01) ==
LOC: EC 09:28
DX: S09.90XA Unspecified injury of head, initial encounter (principal); Z91.09 Other allergy status, other than to drugs and biological substances; Z91.018 Allergy to other foods; Z87.891 Personal history of nicotine dependence; W22.8XXA Striking against or struck by other objects, initial encounter
CPT/HCPCS: 70450; 72125; 99284

== ENCOUNTER → 2020-02-02 | Outpatient (CLI) | payer BC ==
--- NOTE | 2020-02-02 16:25 | US ---
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 No thyroid surgeri es TECHNIQUE: Multiple sonographic images of the thyroid gland are obtained. FINDINGS: GLAND SIZE: Right Lobe: Not visualized Left Lobe: 5.2 x 2.4 x 1.7 cm Overall Parenchyma: heterogeneous Isthmus Thickness: 0.2 cm NODULES RIGHT: Not seen LEFT: # of nodules measured on left: 1 1. 0.8 X 0.6 x 0.5 cm hypoechoic nodule at the mid pole with well-defined margins. This nodule is wider than tall and shows intranodular vascularity. Prior size: No prior ISTHMUS: # of nodules measured in the isthmus: 0 Bilateral neck scanned. Right lateral neck, prominent but nonenlarged lymph node seen - 3.2 x 1.0 x 0.5 cm IMPRESSION: 1. Right lobe not visualized, probably congenitally absent as there is no history of prior surgery. 2. A solid 8 mm nodule within the left lobe. 6 month follow-up to ensure stability.
== END | disposition home or self-care (01) ==
LOC: RADUSWWP 13:56
PROVIDERS: ATTEND Family Medicine
DX: E04.1 Nontoxic single thyroid nodule (principal); E03.1 Congenital hypothyroidism without goiter
CPT/HCPCS: 76536

== ENCOUNTER → 2020-08-17 | Outpatient (CLI) | payer BC ==
--- NOTE | 2020-08-17 13:59 | US ---
EXAMINATION TYPE: US thyroid st tissue head/neck DATE OF EXAM: 08/17/2020 COMPARISON: US & CT 01/2020 CLINICAL HISTORY: E04.1 thyroid nodule. GLAND SIZE: Right Lobe: no tissue visualized Left Lobe: 4.4 x 2.1 x 2.0 cm Overall Parenchyma: homogeneous Isthmus Thickness: 0.3 cm NODULES RIGHT: # of nodules measured on right: 0 LEFT: # of nodules measured on left: 1 1. 0.7 X 0.5 x 0.6 cm, lower lateral, cystic or almost completely cystic, nodule, which is wider th an tall, with smooth margins, without echogenic foci. Prior size: 0.7 x 0.5 x 0.6 cm ISTHMUS: # of nodules measured in the isthmus: 0 Bilateral neck scanned, no evidence of lymphadenopathy. Right thyroid surgically absent. Normal sized left thyroid lobe with stable 7 mm cystic nodule lower pole level. IMPRESSION: As above. No new suspicious nodules. 2017 ACR TI-RADS LEVEL: TR-RADS 1 - BENIGN: No FNA *Highest TI-RADS level nodule reported
== END ==
LOC: RADUSWWP 13:28
PROVIDERS: ATTEND Family Medicine
DX: E04.1 Nontoxic single thyroid nodule (principal)
CPT/HCPCS: 76536

== ENCOUNTER 2020-12-17 17:11 | Emergency (ER) | payer BC ==
[2020-12-17 17:30] VITALS: RESP 18; TEMP 98.3
[2020-12-17] MEDS ORDERED: ONDANSETRON 4 MG/2 ML VIAL IVP STA (18:19)
[2020-12-17] MEDS ORDERED: SODIUM CHLORIDE 0.9% 1,000 ML IV STA (18:19)
[2020-12-17 18:55] LABS: Basophils # (A) 0.1 k/uL (0-0.2); Basophils % (A) 1 %; Eosinophils # (A) 0.2 k/uL (0-0.7); Eosinophils % (A) 2 %; HCT 40.6 % (34.0-46.0); Lymphocytes # (A) 2.7 k/uL (1.0-4.8); Lymphocytes % (A) 25 %; MCH 30.1 pg (25.0-35.0); MCHC 34.4 g/dL (31.0-37.0); MCV 87.4 fL (80.0-100.0); Mean Platelet Volume 8.1; Monocytes # (A) 0.9 k/uL (0-1.0); Monocytes % (A) 8 %; Neutrophils # (A) 6.9 k/uL (1.3-7.7); Neutrophils % (A) 64 %; Platelet Count 269 k/uL (150-450); RBC 4.64 m/uL (3.80-5.40); RDW 12.3 % (11.5-15.5); WBC 10.9 k/uL (3.8-10.6)
[2020-12-17 19:10] LABS: ALT 15 U/L (4-34); AST 28 U/L (14-36); African American GFR (CKD) >90 (>60 ml/min/1.73 sqM); Albumin 4.3 g/dL (3.5-5.0); Alkaline Phosphatase 51 U/L (38-126); Amylase 74 U/L (30-110); Anion Gap 8 mmol/L; Blood Urea Nitrogen 11 mg/dL (7-17); Calcium 9.4 mg/dL (8.4-10.2); Carbon Dioxide 27 mmol/L (22-30); Chloride 104 mmol/L (98-107); Glucose 94 mg/dL (74-99); Lipase 97 U/L (23-300); Non-African American GFR(CKD) >90 (>60 ml/min/1.73 sqM); Potassium 3.8 mmol/L (3.5-5.1); Sodium 139 mmol/L (137-145); Total Bilirubin 0.6 mg/dL (0.2-1.3); Total Protein 6.9 g/dL (6.3-8.2)
--- NOTE | 2020-12-17 20:13 | CT ---
EXAMINATION TYPE: CT abdomen pelvis w con DATE OF EXAM: 12/17/2020 COMPARISON: 03/04/2019 HISTORY: Right lower quadrant pain and nausea. CT DLP: 1962.6 mGycm Automated exposure control for dose reduction was used. CONTRAST: Performed with IV Contrast, patient injected with 100 mL of Isovue 300. Images obtained from the diaphragm to the floor the pelvis with IV contrast. The lung bases are clear of infiltrate. There is no pleural effusion. Heart size is normal. There is no pericardial effusion. Liver spleen stomach pancreas gallbladder appear intact. Bile ducts are not dilated. There is no adrenal mass. Kidneys show satisfactory contrast opacification. There is no hydronephrosi s. Bladder distends smoothly. There is no inguinal hernia. Uterus is anteverted. There is 5.2 cm cyst on the left ovary. There is no free fluid in the pelvis. There is no mesenteric edema. There is no ascites or free air. There is no sign of a bowel obstructio n. Appendix is lateral and appears normal. The lumbar vertebra have normal alignment. There is no compression fracture. The bony pelvis is intac t. Hip joints are intact. There is no hip dysplasia. IMPRESSION: There is large cyst on the left ovary. Ovarian cyst increased compared to old exam. Normal appendix.
[2020-12-17 20:53] LABS: Appearance,Urine Cloudy (Clear); Bacteria,Urine Rare /hpf; Bilirubin,Urine Negative (Negative); Blood,Urine Negative (Negative); Calcium Oxalate Crystals,Urine Moderate /hpf; Color,Urine Yellow; Glucose,Urine (UA) Negative (Negative); Ketones,Urine Negative (Negative); Leukocyte Esterase,Urine Trace (Negative); Mucus,Urine Few /hpf; Nitrite,Urine Negative (Negative); Protein,Urine Trace (Negative); RBC,Urine 1 /hpf (0-5); Squamous Epithelial Cell,Urine 2 /hpf (0-4); Urobilinogen,Urine <2.0 mg/dL (<2.0); WBC,Urine 3 /hpf (0-5)
--- NOTE | 2020-12-17 21:25 | US ---
EXAMINATION TYPE: US transvaginal DATE OF EXAM: 12/17/2020 COMPARISON: US, CT CLINICAL HISTORY: RLQ pain, cysts. Pain, hx ovarian cyst. G0. TECHNIQUE: Transvaginal (TV). Date of LMP: Unknown. EXAM MEASUREMENTS: Uterus: 8.6 x 5.6 x 4.2 cm Endometrial Stripe: 0.73 cm Right Ovary: 3.5 x 8.7 x 1.9 cm Left Ovary: 6.0 x 4.4 x 3.7 cm 1. Uterus: Anteverted No abnormalities seen. 2. Endometrium: Measures 0.73 cm. 3. Right Ovary: Slightly limited visibility. Follicles seen. 4. Left Ovary: Appears enlarged. Complex area seen measuring 4.6 x 3.4 x 3.0 cm. Spectral, color and waveform doppler imaging shows arterial and venous flow within the ovaries. 5. Bilateral Adnexa: Fluid seen in right adnexa measuring 1.5 x 0.7 x 0.7 cm. 6. Posterior cul-de-sac: Fluid seen measuring 0.7 x 2.9 x 2.9 cm. IMPRESSION: There is complex cyst on the left ovary. No evidence of ovarian torsion. Mild free fluid. Normal uter us.
[2020-12-17 22:07] VITALS: BP 123/83; PULSE 92
--- NOTE | 2020-12-17 22:17 | ED ---
Abdominal Pain HPI - General Chief Complaint: Abdominal Pain Stated Complaint: ABD/Back pain Time Seen by Provider: 12/17/20 18:09 Source: patient, RN notes reviewed Mode of arrival: ambulatory Limitations: no limitations - History of Present Illness Initial Comments: Patient is a 25-year-old female that presents to the emergency department complaining of abdominal pain. She notes that she does have a history of ovarian cysts. She notes that the pain is been on and off since Thursday. She notes that nothing really aggravates or increase of the pain and nothing really alleviates it. She was a well-appearing well-hydrated 25-year-old female in no apparent distress or pain. She denied pain medication at this time as it was tolerable. She denied any chest pain shortness breath headache vomiting diarrhea constipation fever fatigue chills. - Related Data Home Medications Medication Instructions Recorded Confirmed Doxycycline Hyclate [Vibramycin] 100 mg PO BID 12/17/20 12/17/20 Allergies Allergy/AdvReac Type Severity Reaction Status Date / Time nickel Allergy Rash/Hives Verified 12/17/20 19:31 mint Allergy Unknown Uncoded 03/04/19 10:35 Review of Systems ROS Statement: Those systems with pertinent positive or pertinent negative responses have been documented in the HPI. ROS Other: All systems not noted in ROS Statement are negative. Past Medical History Additional Past Medical History / Comment(s): Hx Ovarian Cyst, "excess fluid brain, eyes going blurry" History of Any Multi-Drug Resistant Organisms: None Reported Past Surgical History: No Surgical Hx Reported Past Anesthesia/Blood Transfusion Reactions: No Reported Reaction Additional Past Anesthesia/Blood Transfusion Reaction / Comment(s): has never had anesthesia Past Psychological History: No Psychological Hx Reported Smoking Status: Former smoker Past Alcohol Use History: Occasional Past Drug Use History: None Reported - Past Family History Mother Family Medical History: No Reported History General Exam Limitations: no limitations General appearance: alert, in no apparent distress Head exam: Present: atraumatic, normocephalic, normal inspection Eye exam: Present: normal appearance, PERRL, EOMI. Absent: scleral icterus, conjunctival injection, periorbital swelling Neck exam: Present: normal inspection Respiratory exam: Present: normal lung sounds bilaterally. Absent: respiratory distress, wheezes, rales, rhonchi, stridor Cardiovascular Exam: Present: regular rate, normal rhythm, normal heart sounds. Absent: systolic murmur, diastolic murmur, rubs, gallop, clicks GI/Abdominal exam: Present: soft, normal bowel sounds, other (Discomfort in the lower abdomen more so on the left than the right). Absent: distended, tenderness, guarding, rebound, rigid Extremities exam: Present: normal inspection, full ROM, normal capillary refill. Absent: tenderness, pedal edema, joint swelling, calf tenderness Neurological exam: Present: alert, oriented X3 Psychiatric exam: Present: normal affect, normal mood Skin exam: Present: warm, dry, intact, normal color. Absent: rash Course Vital Signs 12/17/20 12/17/20 17:26 22:06 Temperature 98.3 F Pulse Rate 94 92 Respiratory 18 18 Rate Blood Pressure 129/90 123/83 O2 Sat by Pulse 100 99 Oximetry Medical Decision Making - Medical Decision Making 25-year-old female complaining of lower abdominal pain since Thursday. Labs, 1 L normal saline, CT of the abdomen and pelvis, ultrasound, or milligrams of Zofran ordered. Labs unremarkable. Case discussed with Dr. Dash, she can discharge home in stable condition with follow-up primary care - Lab Data Result diagrams: 12/17/20 18:47 12/17/20 18:47 Lab Results 12/17/20 12/17/20 12/17/20 Range/Units 17:49 17:49 18:47 WBC 10.9 H (3.8-10.6) k/uL RBC 4.64 (3.80-5.40) m/uL Hgb 14.0 (11.4-16.0) gm/dL Hct 40.6 (34.0-46.0) % MCV 87.4 (80.0-100.0) fL MCH 30.1 (25.0-35.0) pg MCHC 34.4 (31.0-37.0) g/dL RDW 12.3 (11.5-15.5) % Plt Count 269 (150-450) k/uL MPV 8.1 Neutrophils % 64 % Lymphocytes % 25 % Monocytes % 8 % Eosinophils % 2 % Basophils % 1 % Neutrophils # 6.9 (1.3-7.7) k/uL Lymphocytes # 2.7 (1.0-4.8) k/uL Monocytes # 0.9 (0-1.0) k/uL Eosinophils # 0.2 (0-0.7) k/uL Basophils # 0.1 (0-0.2) k/uL Sodium (137-145) mmol/L Potassium (3.5-5.1) mmol/L Chloride (98-107) mmol/L Carbon Dioxide (22-30) mmol/L Anion Gap mmol/L BUN (7-17) mg/dL Creatinine (0.52-1.04) mg/dL Est GFR (CKD-EPI)AfAm (>60 ml/min/1.73 sqM) Est GFR (CKD-EPI)NonAf (>60 ml/min/1.73 sqM) Glucose (74-99) mg/dL Calcium (8.4-10.2) mg/dL Total Bilirubin (0.2-1.3) mg/dL AST (14-36) U/L ALT (4-34) U/L Alkaline Phosphatase (38-126) U/L Total Protein (6.3-8.2) g/dL Albumin (3.5-5.0) g/dL Amylase (30-110) U/L Lipase (23-300) U/L Urine Color Yellow Urine Appearance Cloudy H (Clear) Urine pH 6.0 (5.0-8.0) Ur Specific [place] 1.030 (1.001-1.035) Urine Protein Trace H (Negative) Urine Glucose (UA) Negative (Negative) Urine Ketones Negative (Negative) Urine Blood Negative (Negative) Urine Nitrite Negative (Negative) Urine Bilirubin Negative (Negative) Urine Urobilinogen <2.0 (<2.0) mg/dL Ur Leukocyte Esterase Trace H (Negative) Urine RBC 1 (0-5) /hpf Urine WBC 3 (0-5) /hpf Ur Squamous Epith Cells 2 (0-4) /hpf Calcium Oxalate Crystal Moderate H (None) /hpf Urine Bacteria Rare H (None) /hpf Urine Mucus Few H (None) /hpf Urine HCG, Qual Not Detected (Not Detectd) 12/17/20 Range/Units 18:47 WBC (3.8-10.6) k/uL RBC (3.80-5.40) m/uL Hgb (11.4-16.0) gm/dL Hct (34.0-46.0) % MCV (80.0-100.0) fL MCH (25.0-35.0) pg MCHC (31.0-37.0) g/dL RDW (11.5-15.5) % Plt Count (150-450) k/uL MPV Neutrophils % % Lymphocytes % % Monocytes % % Eosinophils % % Basophils % % Neutrophils # (1.3-7.7) k/uL Lymphocytes # (1.0-4.8) k/uL Monocytes # (0-1.0) k/uL Eosinophils # (0-0.7) k/uL Basophils # (0-0.2) k/uL Sodium 139 (137-145) mmol/L Potassium 3.8 (3.5-5.1) mmol/L Chloride 104 (98-107) mmol/L Carbon Dioxide 27 (22-30) mmol/L Anion Gap 8 mmol/L BUN 11 (7-17) mg/dL Creatinine 0.59 (0.52-1.04) mg/dL Est GFR (CKD-EPI)AfAm >90 (>60 ml/min/1.73 sqM) Est GFR (CKD-EPI)NonAf >90 (>60 ml/min/1.73 sqM) Glucose 94 (74-99) mg/dL Calcium 9.4 (8.4-10.2) mg/dL Total Bilirubin 0.6 (0.2-1.3) mg/dL AST 28 (14-36) U/L ALT 15 (4-34) U/L Alkaline Phosphatase 51 (38-126) U/L Total Protein 6.9 (6.3-8.2) g/dL Albumin 4.3 (3.5-5.0) g/dL Amylase 74 (30-110) U/L Lipase 97 (23-300) U/L Urine Color Urine Appearance (Clear) Urine pH (5.0-8.0) Ur Specific [place] (1.001-1.035) Urine Protein (Negative) Urine Glucose (UA) (Negative) Urine Ketones (Negative) Urine Blood (Negative) Urine Nitrite (Negative) Urine Bilirubin (Negative) Urine Urobilinogen (<2.0) mg/dL Ur Leukocyte Esterase (Negative) Urine RBC (0-5) /hpf Urine WBC (0-5) /hpf Ur Squamous Epith Cells (0-4) /hpf Calcium Oxalate Crystal (None) /hpf Urine Bacteria (None) /hpf Urine Mucus (None) /hpf Urine HCG, Qual (Not Detectd) - Radiology Data Radiology results: report reviewed, image reviewed Transvaginal ultrasound: There is complex cyst on the left ovary. No evidence of ovarian torsion. Mild free fluid. Normal uterus. CT of the abdomen and pelvis: There is a large cyst on the left ovary. Ovarian cyst increased compared to old exam. Normal appendix. Disposition Clinical Impression: Abdominal pain, Ovarian cyst Disposition: HOME SELF-CARE Condition: Stable Instructions (If sedation given, give patient instructions): Abdominal Pain (ED) Additional Instructions: Please return to the Emergency Department if symptoms worsen or any other concerns. Follow-up primary care as needed. Is patient prescribed a controlled substance at d/c from ED?: No Referrals: Nahun Mota MD [Primary Care Provider] - 1-2 days Time of Disposition: 22:33
== END 2020-12-17 22:56 | disposition home or self-care (01) ==
LOC: EC 17:11
DX: N83.202 Unspecified ovarian cyst, left side (principal); Z87.891 Personal history of nicotine dependence
CPT/HCPCS: 36415; 80053; 82150; 83690; 85025; 81001; 81025; 93975; 76830; 74177; 96374; 96361; 99284; J2405; Q9967

== ENCOUNTER → 2021-01-16 | Outpatient (CLI) | payer BC ==
--- NOTE | 2021-01-16 10:34 | FL ---
ESOPHOGRAM. HISTORY: Dysphagia Esophagram was performed per the air contrast technique. The patient swallowed barium and effervesce nt crystals without difficulty or delay. Esophageal peristalsis and motility appear to be within normal limits. There is no evidence for filling defect, mass or diverticulum. No hiatal hernia seen. Subsequently single contrast cervical esophagram was performed which fails demonstrate evidence for a spiration penetration or mass. IMPRESSION: Unremarkable study.
== END | disposition home or self-care (01) ==
LOC: RADUSWWP 09:53
PROVIDERS: ATTEND Otolaryngology
DX: R13.10 Dysphagia, unspecified (principal)
CPT/HCPCS: 74220